=== PATIENT | female | born 1990 | race Caucasian/White ===

== ENCOUNTER → 2016-06-18 | Outpatient (CLI) | payer BC ==
--- NOTE | 2016-06-18 13:35 | Diagnostic Imaging Report ---
EXAMINATION: Transabdominal and transvaginal pelvic ultrasound. INDICATION: Right ovarian cyst. FINDINGS: The uterus is 7.3 x 4.3 x 3.3 cm. The endometrial stripe is 9 mm in thickness. The myometrium is homogeneous with no focal lesion seen. The right ovary is 5.1 x 3 x 3 cm. The left ovary is 3.7 x 1.9 x 3.4 cm. There is a simple appearing 2.7 cm right ovarian cyst seen with no internal vascularity or color Doppler seen. Color Doppler, however, is seen within the parenchyma of the ovary on both sides. The urinary bladder appears unremarkable. IMPRESSION: There is a 2.7 cm simple appearing right ovarian cyst. Dictated by: Dictated on workstation # [id number]
== END ==
LOC: RAD 09:24
PROVIDERS: ATTEND Obstetrics & Gynecology
DX: E28.2 Polycystic ovarian syndrome (principal)
CPT/HCPCS: 76830; 76856

== ENCOUNTER 2018-12-23 10:05 | Emergency (ER) | payer BC ==
[~2018-12-23] VITALS: Ht 167.7 cm; Wt 147.0 kg
[2018-12-23] MEDS ORDERED: OXYMETAZOLINE (AFRIN) 0.05% NA 15 ML BTL ONE (10:22)
[2018-12-23] MEDS ORDERED: cloNIDine 0.1 MG (CATAPRES) TAB PO ONE (10:30)
--- NOTE | 2018-12-23 10:33 | ED EENT ---
History of Present Illness General Stated Complaint: EPISTAXIS Source: patient Exam Limitations: no limitations History of Present Illness Date Seen by Provider: Dec 23, 2018 Time Seen by Provider: 10:20 Initial Comments The patient is a 28-year-old female who presents for evaluation of right-sided epistaxis which began spontaneously approximately 30 minutes prior to arrival. The patient is noted to have an elevated blood pressure of approximately 170/105 upon arrival. She denies frequent nosebleeds and is not on any anticoagulation. She is alert and oriented 4, calm, and appears to be no distress. She denies any other complaints. She denies any trauma to her nose. She does have a history of hypertension. Timing/Duration: abrupt Severity: moderate Location: nose Prearrival Treatment: squeezing nostrils Allergies and Home Medications Allergies Coded Allergies: No Known Drug Allergies (Unverified , 12/23/18) Patient Home Medication List Home Medication List Reviewed: Yes Review of Systems Review of Systems Constitutional: no symptoms reported Eyes: No Symptoms Reported Ears: No Symptoms Reported Nose: epistaxis Mouth: no symptoms reported Throat: no symptoms reported Respiratory: no symptoms reported Cardiovascular: no symptoms reported Gastrointestinal: no symptoms reported Musculoskeletal: no symptoms reported Skin: no symptoms reported Neurological: No Symptoms Reported Hematologic/Lymphatic: No Symptoms Reported Immunological/Allergic: no symptoms reported All Other Systems Reviewed Negative Unless Noted: Yes Past [id number] Hx Past Med/Social Hx: Reviewed Nursing Past Med/Soc Hx Patient Social History Recent Foreign Travel: No Physical Exam Vital Signs Vital Signs - First Documented 12/23/18 10:11 Temp 36.6 Pulse 90 Resp 20 B/P (MAP) 166/106 (126) Pulse Ox 98 O2 Delivery Room Air Height, Weight, BMI Height: '" Weight: lbs. oz. 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 (12/23/18 21:00) Clonidine Tablet (Catapres Tablet) (12/23/18 10:30) Oxymetazoline 0.05% Nasal [place] (Afrin 0. (12/23/18 10:22) Medications Given in ED Current Medications Medications Dose Ordered Sig/William Route Start Time Stop Time Status Last Admin Dose Admin Clonidine HCl 0.1 mg ONCE ONCE PO 12/23/18 10:30 12/23/18 10:31 DC 12/23/18 10:25 0.1 MG Vital Signs/I&O 12/23/18 10:11 Temp 36.6 Pulse 90 Resp 20 B/P (MAP) 166/106 (126) Pulse Ox 98 O2 Delivery Room Air Progress Progress Note : Progress Note @1105 - the patient's epistaxis has resolved after Afrin. She has no additional complaints at this time. Her blood pressures improved but is still high. She will go home with a prescription for hydrochlorothiazide. She states that she used to be on blood pressure medications but was taken off of them because they were making her hypotensive. She states that she needs to establish care with a new PCP. Advised the patient to return to the Emergency Department immediately for new or worsening symptoms. She expresses verbal understanding and is stable for discharge at this time. Departure Impression Primary Impression: Epistaxis Additional Impression: Hypertension Disposition: 01 HOME, SELF-CARE Condition: Stable Departure-Patient Inst. Decision time for Depature: 11:30 Referrals: NO,LOCAL PHYSICIAN (PCP/Family) Primary Care Physician Patient Instructions: Nosebleeds (DC) Add. Discharge Instructions: Follow-up with your doctor in the next 1-2 days. Return to the Emergency Department immediately for new or worsening symptoms. Scripts Hydrochlorothiazide (Hydrochlorothiazide) 25 Mg Tablet 25 MG PO DAILY for 30 Days, #30 TAB Prov: JOSE ELIAS GAGNON DO 12/23/18 JOSE ELIAS GAGNON DO Dec 23, 2018 10:33 POS
[2018-12-23] MEDS ORDERED: HYDR25TA4 PO (11:30)
[2018-12-23 11:38] VITALS: BP 147/94
[2018-12-23] MEDS ORDERED: OXYMETAZOLINE (AFRIN) 0.05% NA 15 ML BTL SCH (21:00)
== END 2018-12-23 11:38 | disposition home or self-care (01) ==
LOC: EDUNIT# 10:05 → ER FS 10:07
DX: R04.0 Epistaxis (principal); I10 Essential (primary) hypertension

== ENCOUNTER → 2019-07-06 | Outpatient (CLI) | payer BC ==
[~2019-07-06] MED LIST: HYDR25TA4 PO
[2019-07-06 21:50] LABS: HEPATITIS C ANTIBODY C Non-Reactive (Non-Reactive)
== END ==
LOC: LAB FS 12:43
PROVIDERS: ATTEND Family Medicine
DX: Z11.3 Encounter for screening for infections with a predominantly sexual mode of transmission (principal)
CPT/HCPCS: 36415; 86703; 86780; 86803